=== PATIENT | female | born 2000 | race Hispanic/Latino ===

== ENCOUNTER 2019-10-14 22:00 | Observation (INO) | payer OTHER, MEDICAID ==
[~2019-10-14] VITALS: Ht 162.6 cm; Wt 77.1 kg
[2019-10-19] MEDS ORDERED: FERR-82 PO (02:58)
[2019-10-19] MEDS ORDERED: PREN1TAB80 PO (02:58)
== END 2019-10-14 23:20 | disposition home or self-care (01) ==
LOC: EDH 22:00 → LDH 22:11
PROVIDERS: ADMIT Obstetrics & Gynecology; ATTEND Obstetrics & Gynecology
DX: O26.853 Spotting complicating pregnancy, third trimester (principal); Z3A.38 38 weeks gestation of pregnancy
CPT/HCPCS: 99284; G0378

== ENCOUNTER 2019-10-18 22:58 | Inpatient (IN) | payer OTHER, MEDICAID ==
[~2019-10-18] VITALS: Ht 160 cm; Wt 76.7 kg
[2019-10-18] MEDS ORDERED: LACTATED RINGERS 1000ML IV PRN (23:15)
[2019-10-18 23:25] VITALS: BP 109/56
[2019-10-19 00:04] LABS: APPEARANCE,URINE Clear (CLEAR); BILIRUBIN,URINE Negative (NEGATIVE); COLOR,URINE Yellow (YELLOW); GLUCOSE, URINE (UA) Negative (NEGATIVE); KETONES,URINE Negative (NEGATIVE); LEUKOCYTE ESTERASE ,URINE Moderate (NEGATIVE); NITRATE,URINE Negative (NEGATIVE); OCCULT BLOOD,URINE Moderate (NEGATIVE); PROTEIN,URINE Negative (NEGATIVE); UROBILINOGEN,URINE 0.2 mg/dL (0.2-1.0)
[2019-10-19 00:13] LABS: BACTERIA,URINE Moderate /HPF (None Seen)
[2019-10-19 00:14] LABS: RENAL EPITHELIAL CELLS,URINE Few /HPF (None Seen)
[2019-10-19] MEDS ORDERED: AMPICILLIN 2GM+NS 100ML 100 ML IV SCH (00:30)
[2019-10-19] MEDS ORDERED: LACTATED RINGERS 500 ML 500 ML IV PRN (00:30)
[2019-10-19] MEDS ORDERED: EPHEDRINE SULFATE 50 MG/ML AMPULE IVP PRN (00:30)
[2019-10-19] MEDS ORDERED: NALOXONE HCL 0.4 MG/1 ML ML IV PRN (00:30)
[2019-10-19] MEDS ORDERED: ROPIVACAINE 0.2% 100ML VIAL 100 ML EP SCH (00:30)
[2019-10-19] MEDS ORDERED: BUTORPHANOL TARTRATE 2 MG/ML IVP PRN (00:30)
[2019-10-19] MEDS: LACTATED RINGERS 1000ML 1,000 ML IV PRN ×2 (00:32→07:08)
[2019-10-19 00:53] LABS: HEMATOCRIT 37.8 % (36-48); MEAN CORPUSCULAR HEMOGLOBIN 33.9 pg (27.0-33.0); MEAN CORPUSCULAR HGB CONC 34.9 g/dL (32.0-36.0); MEAN CORPUSCULAR VOLUME 97.2 fL (80-100); RED BLOOD CELL COUNT(AUTO) 3.89 MIL/uL (4.00-5.50); RED CELL DISTRIBUTION WIDTH 12.6 % (11.0-15.5); WHITE BLOOD COUNT (AUTO) 10.7 K/uL (4.8-10.8)
[2019-10-19] MEDS ORDERED: FERR-82 PO ×2 (02:58)
[2019-10-19] MEDS ORDERED: PREN1TAB80 PO ×2 (02:58)
[2019-10-19] MEDS: AMPICILLIN 1GM+NS 50ML 50 ML IV SCH ×3 (04:23→12:45)
[2019-10-19] MEDS ORDERED: OXYTOCIN 10 USP UNITS/ML 20 UNIT in LACTATED RINGERS 1000ML 1,000 ML IV SCH (07:00)
[2019-10-19] MEDS ORDERED: OXYTOCIN-LR 20 UNITS/1000 ML 1,000 ML IV ONE ×2 (07:02→11:58)
[2019-10-19] MEDS ORDERED: MEASLES/MUMPS/RUBELLA VACCINE, LIVE 0.5 ML/VIAL SQ PRN (12:15)
[2019-10-19] MEDS ORDERED: DIPH,PERTUSS(ACELL),TET VAC/PF 0.5 ML VIAL IM PRN (12:15)
[2019-10-19] MEDS ORDERED: IBUPROFEN 600 MG TABLET PO PRN (12:15)
[2019-10-19] MEDS ORDERED: ACETAMINOPHEN 325 MG TAB PO PRN (12:15)
[2019-10-19] MEDS ORDERED: WITCH HAZEL 1 PAD TP PRN (12:15)
[2019-10-19] MEDS ORDERED: BENZOCAINE/LANOLIN/ALOE VERA 60 ML AEROSOL TP PRN (12:15)
[2019-10-19] MEDS ORDERED: ACETAMINOPHEN-CODEINE 300/30MG TAB PO PRN (12:15)
[2019-10-19] MEDS ORDERED: LANOLIN 30GM OINTMENT TP PRN (12:15)
[2019-10-19] MEDS ORDERED: METHYLERGONOVINE MALEATE 0.2 MG/1 ML ML ONE (13:07)
--- NOTE | 2019-10-19 14:45 | NUR ---
TRANSFER TO PP TRANSFERRED TO VIA WHEELCHAIR IN STABLE CONDITION. ORIENTED TO ROOM AND CALL [facility].
[2019-10-19 16:21] VITALS: BP 126/66
--- NOTE | 2019-10-19 16:23 | NUR ---
BR ASSISTED UP TO BR, STEADY GAIT OBSERVED. VOIDED WELL W/O DIFFICULTY. PT GIVEN DERMAPLAST SPRAY FOR MILD BURNING WITH URINATION. COMFORT MEASURES GIVEN, CALL [facility] WITHIN REACH.
--- NOTE | 2019-10-19 16:25 | NUR ---
VACCINES TDAP AND FLU VACCINE OFFERED TO PT, PT DENIES WANTING EITHER VACCINE.PT ADVISED TO NOTIFY NURSING STAFF IF SHE CHANGES HER DECISION.
[2019-10-19 19:55] VITALS: BP 123/57
[2019-10-19] MEDS: DOCUSATE SODIUM 100 MG CAP PO SCH (20:57)
[2019-10-19 23:30] VITALS: BP 114/65
[2019-10-20 03:30] VITALS: BP 115/59
--- NOTE | 2019-10-20 06:00 | NUR ---
Education Pt given [facility] discharge instructions with medication information, prescription and schedule, and resource list for shelters and counseling. Pt verbalized understanding.
[2019-10-20 07:50] VITALS: BP 112/57
[2019-10-20] MEDS: DOCUSATE SODIUM 100 MG CAP PO SCH (10:38)
[2019-10-20 11:50] VITALS: BP 105/62
--- NOTE | 2019-10-20 14:15 | NUR ---
DISCHARGE PT LEFT UNIT VIA WHEELCHAIR, WITH BABY IN ARMS, ACCOMPANIED BY FAMILY. DENIED PAIN AND HAD NO COMPLAINTS. BABY STRAPPED IN CAR SEAT. PT AND BABY TRANSPORTED BY PERSONAL VEHICLE.
[2019-10-20 18:09] LABS: HEPATITIS Bs ANTIGEN SCREEN P Negative (Negative)
== END 2019-10-20 14:15 | disposition home or self-care (01) | DRG 807 ==
LOC: EDH 22:58 → LDH 22:59 → OBSVTOIN 22:59 → LDH 23:21 → WSH 10-19 14:58
PROVIDERS: ADMIT Obstetrics & Gynecology; ATTEND Obstetrics & Gynecology
PROC: 10907ZC Drainage of Amniotic Fluid, Therapeutic from Products of Conception, Via Natural or Artificial Opening (ICD-10-PCS; principal; 2019-10-19)
PROC: 10E0XZZ Delivery of Products of Conception, External Approach (ICD-10-PCS; 2019-10-19)
PROC: 3E0234Z Introduction of Serum, Toxoid and Vaccine into Muscle, Percutaneous Approach (ICD-10-PCS; 2019-10-19)
PROC: 3E0134Z Introduction of Serum, Toxoid and Vaccine into Subcutaneous Tissue, Percutaneous Approach (ICD-10-PCS; 2019-10-19)
DX: O62.2 Other uterine inertia (principal); Z37.0 Single live birth; O69.81X0 Labor and delivery complicated by cord around neck, without compression, not applicable or unspecified; Z3A.39 39 weeks gestation of pregnancy; Z23 Encounter for immunization; O99.824 Streptococcus B carrier state complicating childbirth; O71.89 Other specified obstetric trauma
CPT/HCPCS: 36415; 81001; 85027; 86592; 86850; 86900; 86901; 87088; 87340; A4351; G0378; J0290; J0595; J2210; J2590

== ENCOUNTER 2019-10-23 20:16 | Emergency (ER) | payer OTHER, MEDICAID ==
[~2019-10-23 20:16] MED LIST: FERR-82 PO; PREN1TAB80 PO
[2019-10-23] MEDS ORDERED: ACETAMINOPHEN EXTRA STRENGTH 500 MG TABLET ONE (21:02)
== END 2019-10-23 21:53 | disposition home or self-care (01) ==
LOC: EDH 20:16
DX: O91.23 Nonpurulent mastitis associated with lactation (principal)